=== PATIENT | female | born 1945 | race Caucasian/White ===

== ENCOUNTER 2021-09-13 14:11 | Outpatient (CLI) | payer OTHER, MEDICARE | END 2021-09-13 14:12 | disposition home or self-care (01) | LOC: CSHMAMMO 14:11 | PROVIDERS: ATTEND Family Medicine | DX: Z12.31 Encounter for screening mammogram for malignant neoplasm of breast (principal); Z98.890 Other specified postprocedural states; Z98.82 Breast implant status | CPT/HCPCS: 77063; 77067 ==